=== PATIENT | female | born 1945 | race Caucasian/White ===

== ENCOUNTER 2017-03-22 15:28 | Observation (INO) | payer MEDICARE ==
[~2017-03-22] VITALS: Ht 157.5 cm; Wt 57.6 kg
[~2017-03-22 15:28] MED LIST: ATORVASTATIN CA20 MG PO; BENADRYL25 M1 PO; FERROUS SULFAT325 MG PO; FOLIC ACID1 MG PO; METHOTREXATE2.5 MG PO; ONDANSETRO4 MG/UDTAB PO; PAXIL20 MG PO; TRAZODONE HCL150 MG PO; TYLENOL WITH C1 EACH PO; VALIUM5 MG PO
[2017-03-22 17:24] LABS: BASOPHILS # (AUTO) 0.1 (0.0-0.1); BASOPHILS % 1.2 % (0.0-1.0); EOSINOPHILS % 0.6 % (0.0-6.0); HEMATOCRIT 26.7 % (34.2-44.1); LYMPHOCYTES # (AUTO) 0.9 (1.0-3.2); LYMPHOCYTES % 13.1 % (18.0-39.1); MEAN CORPUSCULAR HEMOGLOBIN 16.7 pg (28-32); MEAN CORPUSCULAR HGB CONC 26.2 g/dL (31-35); MEAN CORPUSCULAR VOLUME 63.7 fL (81-99); MONOCYTES # (AUTO) 0.6 (0.2-0.8); MONOCYTES % 9.5 % (4.4-11.3); NEUTROPHILS # (AUTO) 5.1 (2.1-6.9); NEUTROPHILS % 75.5 % (38.7-80.0); PLATELET COUNT 235 x10e3/uL (140-360); RED BLOOD COUNT 4.19 x10e6/uL (3.6-5.1); RED CELL DISTRIBUTION WIDTH 22.3 % (11.7-14.4)
[2017-03-22 17:26] LABS: BILIRUBIN,URINE NEGATIVE (NEGATIVE); CLARITY,URINE CLEAR (CLEAR); COLOR,URINE YELLOW (YELLOW); KETONES,URINE NEGATIVE (NEGATIVE); LEUKOCYTE ESTERASE ,URINE NEGATIVE (NEGATIVE); NITRITE,URINE NEGATIVE (NEGATIVE); PROTEIN,URINE DIPSTICK NEGATIVE (NEGATIVE); URINE UROBILINOGEN 0.2 mg/dL (0.2 - 1)
[2017-03-22 17:36] LABS: EPITHELIAL CELLS,URINE FEW /LPF; RBC,URINE 0-5 /HPF (0-5); WBC,URINE (MAN) 0-5 /HPF (0-5)
[2017-03-22 17:41] LABS: INR 1.33; PROTHROMBIN TIME 17.2 seconds (11.9-14.5)
[2017-03-22 17:42] LABS: PARTIAL THROMBOPLASTIN TIME 29.9 seconds (23.8-35.5)
--- NOTE | 2017-03-22 17:50 | Diagnostic Imaging Report ---
EXAMINATION: Head CT HISTORY: AMS, status post fall. COMPARISON: None. TECHNIQUE: Multidetector axial images were obtained without contrast from the foramen magnum to the vertex . The images were reconstructed using brain and bone algorithms. Thin section brain images were reformatted into coronal and sagittal planes. Motion/streaking artifact limits the evaluation of the skull base and posterior cranial fossa. FINDINGS: Parenchyma: 1. Moderate confluent periventricular white matter hypodensities, most likely nonspecific chronic microvascular changes. 2. No mass or hemorrhage. No CT evidence of acute territorial vascular insult. Extra-axial spaces:No abnormal density. No extra-axial fluid collections Brain volume: Normal for age. Ventricles: Mild ventriculomegaly, that is slightly out of proportion to the size of the cortical sulci, thinning and upward displacement of the corpus callosum, with relative partial effacement of the vertex region sulci. Some degree of normal pressure hydrocephalus cannot be excluded in the appropriate clinical setting. Arteries: No density suggestive of thrombus. Dural sinuses: No abnormal density. Extra-axial spaces: No abnormal density. Foramen magnum: No mass, Chiari malformation, or basilar invagination. Sella: No obvious mass. Paranasal/mastoid sinuses: Imaged portions unremarkable. Skull/Scalp: No lytic or blastic lesions. No fractures. IMPRESSION: 1. No acute intracranial hemorrhage. 2. Moderate chronic microvascular ischemic changes. 3. Ventriculomegaly as described. Signed by: Dr. Jayne Sorto M.D. on 03/22/2017 5:46 PM
[2017-03-22 17:54] LABS: ALBUMIN 3.3 g/dL (3.5-5.0); ALBUMIN/GLOBULIN RATIO 0.9 (0.8-2.0); ANION GAP 12.2 mmol/L (8-16); CALCIUM 8.8 mg/dL (8.4-10.2); CREATININE, SERUM 1.17 mg/dL (0.57-1.11); POTASSIUM 4.2 mmol/L (3.5-5.1)
[2017-03-22 18:06] LABS: CREATINE KINASE MB 1.5 ng/mL (0.00-5.00); TROPONIN I 0.235 ng/mL (0-0.300)
[2017-03-22] MEDS ORDERED: SODIUM CHLORIDE 0.9% 250ML 250 ML IV ONE (22:45)
[2017-03-22] MEDS ORDERED: SODIUM CHLORIDE FLUSH 10 ML SYR INJ PRN (22:45)
[2017-03-22] MEDS ORDERED: ONDANSETRON HCL INJ 2 MG/ML VIAL IV PRN (22:45)
[2017-03-22] MEDS ORDERED: FUROSEMIDE INJ 10 MG/ML 2 ML VIAL IV PRN (22:45)
[2017-03-22 23:34] LABS: FERRITIN 33.6 ng/mL (4.63-204.00)
[2017-03-23] VITALS (9 sets, daily range): BP systolic 103–129; BP diastolic 50–60
[2017-03-23] MEDS ORDERED: SODIUM CHLORIDE 0.9% 250ML 250 ML ONE (04:48)
[2017-03-23] MEDS: PANTOPRAZOLE 40 MG 10ML VIAL IV SCH ×2 (09:12→10:25)
[2017-03-23 10:44] LABS: BASOPHILS # (AUTO) 0.1 (0.0-0.1); BASOPHILS % 1.1 % (0.0-1.0); EOSINOPHILS # (AUTO) 0.2 (0.0-0.4); EOSINOPHILS % 3.7 % (0.0-6.0); HEMATOCRIT 31.1 % (34.2-44.1); HEMOGLOBIN 8.6 g/dL (12.0-16.0); LYMPHOCYTES # (AUTO) 0.8 (1.0-3.2); LYMPHOCYTES % 12.4 % (18.0-39.1); MEAN CORPUSCULAR HEMOGLOBIN 18.5 pg (28-32); MEAN CORPUSCULAR HGB CONC 27.7 g/dL (31-35); MEAN CORPUSCULAR VOLUME 66.9 fL (81-99); MONOCYTES # (AUTO) 0.7 (0.2-0.8); MONOCYTES % 10.2 % (4.4-11.3); NEUTROPHILS # (AUTO) 4.7 (2.1-6.9); NEUTROPHILS % 72.3 % (38.7-80.0); PLATELET COUNT 231 x10e3/uL (140-360); RED BLOOD COUNT 4.65 x10e6/uL (3.6-5.1); RED CELL DISTRIBUTION WIDTH 24.5 % (11.7-14.4)
[2017-03-23 11:03] LABS: ALBUMIN 2.9 g/dL (3.5-5.0); ALBUMIN/GLOBULIN RATIO 0.8 (0.8-2.0); ANION GAP 15.6 mmol/L (8-16); CALCIUM 8.2 mg/dL (8.4-10.2); CREATININE, SERUM 0.94 mg/dL (0.57-1.11); POTASSIUM 3.6 mmol/L (3.5-5.1)
[2017-03-23 11:18] LABS: ANISOCYTOSIS SLIGHT; EOSINOPHILS % (MANUAL) 2 % (0-7); LYMPHOCYTES % (MANUAL) 6 % (19-48); MONOCYTES % (MANUAL) 12 % (3.4-9.0); NEUTROPHILS % (MANUAL) 80 % (40-74)
[2017-03-23 11:19] LABS: HYPOCHROMASIA SLIGHT; MICROCYTOSIS SLIGHT; PLATELET ESTIMATE ADEQUATE; PLATELET MORPHOLOGY COMMENT NORMAL; POIKILOCYTOSIS SLIGHT
[2017-03-23] MEDS ORDERED: IPRATROPIUM BROMIDE 0.06% 42 MCG NASPR NS PRN (11:30)
[2017-03-23] MEDS ORDERED: DIAZEPAM 5 MG TAB PO PRN (11:30)
[2017-03-23] MEDS: ACETAMINOPHEN 325 MG TAB PO PRN ×3 (13:39→21:04)
[2017-03-23] MEDS: SODIUM FERRIC GLUCONATE COMPLX 125 MG in SODIUM CHLORIDE 0.9% 100 ML 100 ML IV SCH (14:52)
--- NOTE | 2017-03-23 15:35 | History and Physical ---
PRIMARY CARE PHYSICIAN: Dr. Allan. CHIEF COMPLAINT: Confusion and decreased energy. HISTORY OF PRESENT ILLNESS: This is a 71-year-old woman with a history of anemia, rheumatoid arthritis, who has a history of alcoholism, now developing increased fatigue and confusion, and, therefore, brought to the hospital by her son. They admitted that the patient has been more confused over the past month. The patient also admits to some swelling of the abdomen in the past and leg edema in the past. Here she is found to have severe anemia. She is admitted for further evaluation and management. Denies any chest pain. Denies any abdominal pain. Denies any melena or blood loss. PAST MEDICAL HISTORY: Anemia. Generalized anxiety disorder, TIA, rheumatoid arthritis. PAST SURGICAL HISTORY: as per electronic medical records. FAMILY HISTORY/SOCIAL HISTORY: The patient is single. She has one child. Quit alcohol about 3 months ago. She drank about 4 beers a day. She denies any cigarettes or illicits. MEDICATIONS: Per electronic medical records. REVIEW OF SYSTEMS: Denies any dizziness or chest pain. PHYSICAL EXAMINATION VITAL SIGNS: Reviewed. GENERAL APPEARANCE: A tired-appearing woman resting in the bed. HEENT: Anicteric. Pupils responsive to light. No oral lesions. CARDIOVASCULAR: Normal S1 and S2. LUNGS: Moderate breath sounds, ABDOMEN: Soft and nontender. Nondistended. EXTREMITIES: There is no edema or calf tenderness. NEUROLOGIC: Alert and oriented x3. Moving all extremities. SKIN: Dry. PSYCHIATRIC: Flat affect. LABS: Reviewed. MEDICATIONS: Reviewed. ASSESSMENT AND PLAN: A 71-year-old woman. 1. Severe anemia, which is microcytic. She has iron deficiency. She has received 1 unit of packed red blood cells. Will use IV . 2. Hyperbilirubinemia. The patient has been on methotrexate and drank excess alcohol in the past. Will stop methotrexate and obtain hepatitis panel. Will also obtain an ammonia level. Her ammonia level was 35. 3. Acute kidney injury. She has shown some improvement after receiving blood. Will follow. 4. Generalized anxiety disorder. Restart home medications. 5. Rheumatoid arthritis. Hold methotrexate. 6. Prophylaxis. Use IV proton pump inhibitor and SCDs. DISPOSITION: Reassess blood counts tomorrow. If stable, plan to discharge home. She can follow up as an outpatient with her primary care physician for the results of the hepatitis panel testing. Job#: [id number] PERLITA
[2017-03-23] MEDS ORDERED: TRAZODONE HCL 50 MG TAB PO SCH (21:00)
[2017-03-23] MEDS ORDERED: ATORVASTATIN 20 MG TAB PO SCH (21:00)
[2017-03-24 00:21] VITALS: BP 121/68
[2017-03-24 04:00] VITALS: BP 134/62
[2017-03-24] MEDS: ACETAMINOPHEN 325 MG TAB PO PRN (06:31)
[2017-03-24 08:25] VITALS: BP 132/61
[2017-03-24] MEDS ORDERED: FERROUS SULFAT325 MG PO (08:50)
[2017-03-24] MEDS ORDERED: PANTOPRAZOLE SO40 MG PO (08:50)
[2017-03-24] MEDS ORDERED: FOLIC ACID 1 MG TAB PO SCH (09:00)
[2017-03-24] MEDS ORDERED: FERROUS SULFATE 325 MG TAB PO SCH (09:00)
[2017-03-24 09:19] LABS: HEMATOCRIT 32.7 % (34.2-44.1); HEMOGLOBIN 9.3 g/dL (12.0-16.0)
[2017-03-24] MEDS: PANTOPRAZOLE 40 MG 10ML VIAL IV SCH (09:19)
[2017-03-24 10:55] VITALS: BP 132/61
[2017-03-24 12:42] VITALS: BP 124/59
[2017-03-24] MEDS: SODIUM FERRIC GLUCONATE COMPLX 125 MG in SODIUM CHLORIDE 0.9% 100 ML 100 ML IV SCH (13:00)
--- NOTE | 2017-03-25 02:50 | Discharge Summary ---
PRINCIPAL DIAGNOSES 1. Severe microcytic anemia with iron deficiency, status post blood transfusion of 1 unit of packed red blood cell transfusion and intravenous Ferrlecit. 2. Hyperbilirubinemia, on methotrexate. 3. Acute kidney injury. 4. Generalized anxiety disorder. SECONDARY DIAGNOSIS: Rheumatoid arthritis. CHIEF COMPLAINT: Fatigue. HISTORY OF PRESENT ILLNESS: This is a 71-year-old woman who developed fatigue. Refer to the H and P for further details. HOSPITAL COURSE: Patient was found to have severe anemia, microcytic with iron deficiency requiring 2 units of packed red blood cell transfusion. She had IV Ferrlecit treated, and started on Protonix. We will recheck her H and H this morning. If it is stable, we will send her home and plan to have an outpatient endoscopy with Dr. Fournier. I have discontinued her methotrexate due to hyperbilirubinemia. I have also started her on Protonix for anemia. She had acute kidney injury, which has improved and resolved with blood transfusion. She had generalized anxiety disorder, and treated with home medications. She is doing better and currently appropriate for discharge. Patient's H and H is stable. DISCHARGE MEDICATIONS: Per electronic medical record, including ferrous sulfate 35 mg b.i.d. and Protonix 40 mg daily. FOLLOWUP 1. Primary care doctor in 1 week. 2. Follow up with Dr. Fournier in 1 week for outpatient endoscopy. KEIRY NEWBERRY MD Job#: [id number] NE
== END 2017-03-24 14:35 | disposition home or self-care (01) ==
LOC: ER 15:28 → ERHOLD 22:39 → IMCU 03-23 04:17
PROVIDERS: ADMIT Internal Medicine; ATTEND Internal Medicine
DX: D50.9 Iron deficiency anemia, unspecified (principal); N17.9 Acute kidney failure, unspecified; F41.1 Generalized anxiety disorder; M06.9 Rheumatoid arthritis, unspecified; E80.7 Disorder of bilirubin metabolism, unspecified; K21.9 Gastro-esophageal reflux disease without esophagitis; G62.9 Polyneuropathy, unspecified; F10.21 Alcohol dependence, in remission; Z86.73 Personal history of transient ischemic attack (TIA), and cerebral infarction without residual deficits; Z79.899 Other long term (current) drug therapy
CPT/HCPCS: 36415 ×3; 36430; 70450; 80053 ×2; 81001; 82140; 82550; 82553; 82728; 82948; 83540; 84443; 84466; 84484; 85014; 85018; 85025 ×2; 85610; 85730; 86850; 86900; 86920; 87086; 93005; 97139; 99284; G0378 ×3; J1940; J2405; J2916; J7050; P9016

== ENCOUNTER 2017-08-24 00:28 | Emergency (ER) | payer MEDICARE ==
[~2017-08-24] VITALS: Ht 157.5 cm; Wt 57.6 kg
[~2017-08-24 00:28] MED LIST changes: +PANTOPRAZOLE SO40 MG PO
--- OUTSIDE RECORDS SUMMARY | 2017-08-24 00:31 | XMS REPORT ---
Author Author [facility] Address Unknown Phone Unavailable Care Team Providers Care Post Office Markup Clerk Name Role Phone ZOHAIB NOVAK Unavailable Unavailable BIBI SHEFFIELD Unavailable Unavailable Problems This patient has no known problems. Allergies, Adverse Reactions, Alerts This patient has no known allergies or adverse reactions. Medications This patient has no known medications. Results Test Description Test Time Test Comments Text Results Atomic Results Result Comments CT BRAIN WO [place] [address] Patient Name: CARTER JAMES MR #: [id number] : 1945 Age/Sex: 71/F Req #: [id number] Adm Physician: Ordered by: ZOHAIB NOVAK MD Report #: [id number] Location: ER Room/Bed: Procedure: [id number] CT/CT BRAIN WO Exam Date: Exam Time: REPORT STATUS: Signed EXAMINATION: Head CT HISTORY: AMS, status post fall. COMPARISON: None. TECHNIQUE: Multidetector axial images were obtained without contrast from the foramen magnum to the vertex . The images were reconstructed using brain and bone algorithms. Thin section brain images were reformatted into coronal and sagittal planes. Motion/streaking artifact limits the evaluation of the skull base and posterior cranial fossa. FINDINGS: Parenchyma: 1. Moderate confluent periventricular white matter hypodensities, most likely nonspecific chronic microvascular changes. 2. No mass or hemorrhage. No CT evidence of acute territorial vascular insult. Extra-axial spaces:No abnormal density. No extra-axial fluid collections Brain volume: Normal for age. Ventricles: Mild ventriculomegaly, that is slightly out of proportion to the size of the cortical sulci, thinning and upward displacement of the corpus callosum, with relative partial effacement of the vertex region sulci. Some degree of normal pressure hydrocephalus cannot be excluded in the appropriate clinical setting. Arteries: No density suggestive of thrombus. Dural sinuses: No abnormal density. Extra-axial spaces: No abnormal density. Foramen magnum: No mass, Chiari malformation, or basilar invagination. Sella: No obvious mass. Paranasal/mastoid sinuses: Imaged portions unremarkable. Skull/Scalp: No lytic or blastic lesions. No fractures. IMPRESSION: 1. No acute intracranial hemorrhage. 2. Moderate chronic microvascular ischemic changes. 3. Ventriculomegaly as described. Signed by: Dr. Lyndsey Sorto M.D. on 03/22/2017 5:46 PM Dictated By: LYNDSEY SORTO MD 45 COPY TO: ZOHAIB NOVAK MD HIPS BILAT 5 VWS (+/- PELVIS) [place] [address] Patient Name: CARTER JAMES MR #: [id number] : 1945 Age/Sex: 71/F Req #: [id number] Adm Physician: Ordered by: BIBI SHEFFIELD MD Report #: [id number] Location: ER Room/Bed: Procedure: [id number] DX/HIPS BILAT 5 VWS (+/- PELVIS) Exam Date: Exam Time: REPORT STATUS: Signed Bilateral hips - 2 views. Pelvis, AP. HISTORY: Pain. COMPARISON: None available. FINDINGS: Bones: No acute displaced fracture. No expansile lytic or sclerotic lesion. Joints: The joint spaces are well-maintained. No dislocation. Soft tissues: The soft tissues appear unremarkable. Atherosclerotic calcifications. IMPRESSION: No acute radiographic abnormality. Signed by: Dr. Rohith Delgado M.D. on 12/16/2016 4:03 PM Dictated By: ROHITH DELGADO MD 02 COPY TO: BIBI SHEFFIELD MD SP LUMBAR, COMPLETE MIN 4VW [place] [address] Patient Name: CARTER JAMES MR #: [id number] : 1945 Age/Sex: 71/F Req #: [id number] Adm Physician: Ordered by: BIBI SHEFFIELD MD Report #: [id number] Location: ER Room/Bed: Procedure: [id number] DX/SP LUMBAR, COMPLETE MIN 4VW Exam Date: 12/16/16 Exam Time: 1530 REPORT STATUS: Signed Lumbar spine , complete. History: Pain. Comparison: None. Discussion: There are 5 lumbar type vertebral bodies. No displaced fracture or dislocation. Degenerative changes are evidenced by anterior osteophytosis and disc space narrowing of L3/L4. The alignment of the lumbar spine is normal. The vertebral bodies and intervertebral disk spaces are within normal limits. There is no evidence of spondylolisthesis or spondylolysis. No evidence of lytic or sclerotic lesion. The paravertebral soft tissues are unremarkable. IMPRESSION: No acute radiographic abnormality. Degenerative changes. Signed by: Dr. Rohith Delgado M.D. on 12/16 4:06 PM Dictated By: ROHITH DELGADO MD 05 Transcribed By: KERVIN on 12/16/161605 COPY TO: BIBI SHEFFIELD MD
[2017-08-24 00:45] VITALS: BP 144/69
== END 2017-08-24 02:12 | disposition home or self-care (01) ==
LOC: ER 00:28
DX: M79.605 Pain in left leg (principal); M79.604 Pain in right leg; R60.0 Localized edema; I10 Essential (primary) hypertension; I50.9 Heart failure, unspecified; E78.5 Hyperlipidemia, unspecified; K21.9 Gastro-esophageal reflux disease without esophagitis; F41.9 Anxiety disorder, unspecified; D64.9 Anemia, unspecified
CPT/HCPCS: 99283

== ENCOUNTER 2017-09-13 15:14 | Inpatient (IN) | payer MEDICARE ==
[~2017-09-13] VITALS: Ht 157.5 cm; Wt 58.2 kg
--- NOTE | 2017-09-13 17:37 | Diagnostic Imaging Report ---
PROCEDURE: A single AP view of the chest. COMPARISON: None. INDICATIONS: ANSCARIA, SOB FINDINGS: Lines/tubes: None. Lungs: Limited by body habitus and low lung volumes. Central vascular congestion and mild interstitial edema. Left lower lung field opacification, likely effusion. Pleura: There is no pneumothorax. Heart and mediastinum: The cardiac silhouette is enlarged. Bones: No acute bony abnormality. IMPRESSION: Central vascular congestion, enlarged cardiac silhouette, mild interstitial edema, and bilateral pleural effusions (left greater than right). Dictated by: Alton Hinton M.D. on 09/13/2017 at 17:41 Electronically approved by: Alton Hinton M.D. on 09/13/2017 at 17:41
[2017-09-13 18:27] LABS: BASOPHILS % 0.4 % (0.0-1.0); EOSINOPHILS # (AUTO) 0.1 (0.0-0.4); EOSINOPHILS % 1.3 % (0.0-6.0); HEMATOCRIT 37.2 % (34.2-44.1); HEMOGLOBIN 11.4 g/dL (12.0-16.0); LYMPHOCYTES # (AUTO) 1.1 (1.0-3.2); LYMPHOCYTES % 15.8 % (18.0-39.1); MEAN CORPUSCULAR HEMOGLOBIN 27.9 pg (28-32); MEAN CORPUSCULAR HGB CONC 30.6 g/dL (31-35); MONOCYTES # (AUTO) 0.6 (0.2-0.8); MONOCYTES % 8.5 % (4.4-11.3); NEUTROPHILS # (AUTO) 4.9 (2.1-6.9); NEUTROPHILS % 73.7 % (38.7-80.0); PLATELET COUNT 260 x10e3/uL (140-360); RED BLOOD COUNT 4.09 x10e6/uL (3.6-5.1); RED CELL DISTRIBUTION WIDTH 18.6 % (11.7-14.4)
[2017-09-13 18:37] LABS: INR 1.58; PROTHROMBIN TIME 17.7 seconds (11.9-14.5)
[2017-09-13 18:38] LABS: PARTIAL THROMBOPLASTIN TIME 32.1 seconds (23.8-35.5)
[2017-09-13 18:47] LABS: ALANINE AMINOTRANSFERASE 24 IU/L (0-55); ALBUMIN 2.1 g/dL (3.5-5.0); ALBUMIN/GLOBULIN RATIO 0.6 (0.8-2.0); ALKALINE PHOSPHATASE 177 IU/L (40-150); ANION GAP 11.9 mmol/L (8-16); BLOOD UREA NITROGEN 10 mg/dL (7-26); BUN/CREATININE RATIO 13 (6-25); CALCIUM 8.6 mg/dL (8.4-10.2); CARBON DIOXIDE 34 mmol/L (22-29); CHLORIDE 99 mmol/L (98-107); CREATININE, SERUM 0.76 mg/dL (0.57-1.11); EST GLOMERULAR FILTRATION RATE > 60 ML/MIN (60-); GLUCOSE 99 mg/dL (74-118); SODIUM 142 mmol/L (136-145)
[2017-09-13 18:50] LABS: POTASSIUM 2.9 mmol/L (3.5-5.1)
[2017-09-13] MEDS ORDERED: POTASSIUM CHLORIDE 20 MEQ TAB CR PO STA (19:03)
[2017-09-13] MEDS ORDERED: ALBUTEROL/IPRATROPIUM 3 ML NEB NEB ONE (19:15)
[2017-09-13] MEDS ORDERED: SODIUM CHLORIDE FLUSH 10 ML SYR INJ PRN (19:15)
[2017-09-13] MEDS: TRAZODONE HCL 50 MG TAB PO SCH (22:00)
[2017-09-13] MEDS ORDERED: DIPHENHYDRAMINE HCL 25 MG CAP PO PRN (22:00)
[2017-09-13 22:07] VITALS: BP 140/78
[2017-09-13 22:08] VITALS: BP 140/78
[2017-09-13 22:21] VITALS: BP 140/78
[2017-09-14] VITALS (9 sets, daily range): BP systolic 114–168; BP diastolic 57–90
[2017-09-14] MEDS: ALBUTEROL/IPRATROPIUM 3 ML NEB NEB PRN ×3 (01:00→13:35)
[2017-09-14 02:54] LABS: CREATINE KINASE MB 1.9 ng/mL (0-5.0)
[2017-09-14] MEDS ORDERED: POTASSIUM CHLORIDE 20 MEQ TAB CR PO SCH (09:00)
[2017-09-14] MEDS ORDERED: LISINOPRIL 2.5 MG TAB PO SCH (09:00)
[2017-09-14] MEDS: FUROSEMIDE INJ 10 MG/ML 4 ML VIAL IV SCH ×2 (09:26→16:37)
[2017-09-14] MEDS: FOLIC ACID 1 MG TAB PO SCH (09:26)
[2017-09-14] MEDS: SPIRONOLACTONE 25 MG TAB PO SCH ×2 (09:26→16:37)
[2017-09-14] MEDS: FERROUS SULFATE 325 MG TAB PO SCH ×2 (09:26→21:21)
[2017-09-14] MEDS: ATORVASTATIN 20 MG TAB PO SCH (09:27)
[2017-09-14] MEDS: PAROXETINE HCL 20 MG TAB PO SCH (09:28)
[2017-09-14] MEDS: PANTOPRAZOLE SOD 40 MG TABEC PO SCH (09:28)
--- NOTE | 2017-09-14 10:44 | History and Physical ---
PRIMARY CARE PHYSICIAN: Dr. Allan CHIEF COMPLAINT: Fluid overload. HISTORY OF PRESENT ILLNESS: This is a 71-year-old woman who has been having increased leg swelling and abdominal edema for the past month. She has not seen her primary care doctor. She came to the hospital for further evaluation and management. Denies any chest pain. Does have some shortness of breath when lying flat. PAST MEDICAL HISTORY: Anemia, generalized anxiety disorder, TIA, rheumatoid arthritis, alcohol abuse, severe microcytic anemia with iron deficiency, status post blood transfusion times 1 on IV Ferrlecit, hyperbilirubinemia on methotrexate, acute kidney injury. PAST SURGICAL HISTORY: . ALLERGIES: PER ELECTRONIC MEDICAL RECORD. FAMILY HISTORY/SOCIAL HISTORY: The patient is single. She has 1 child. Previously drank about 4 beers a day. Denies any cigarettes or illicits. MEDICATIONS: Per electronic medical record. REVIEW OF SYSTEMS: Denies any dizziness, fever, chills, sweats, nausea, vomiting, diarrhea, leg pain. VITAL SIGNS: Have been reviewed. PHYSICAL EXAMINATION GENERAL: A tired-appearing woman resting in bed. HEENT: Atraumatic. CARDIOVASCULAR: Normal S1 and S2. LUNGS: She has moderate breath sounds reduced at the bases. ABDOMEN: Firm throughout the abdomen secondary to edema. EXTREMITIES: She has edema throughout, 2 to 3+, firm legs throughout. SKIN: Dry. She has mild macular erythematous rash on the face. PSYCHIATRIC: Flat affect. NEUROLOGIC: Awake, alert, appropriate, moving all extremities. LABS: Reviewed. MEDICATIONS: Reviewed. ASSESSMENT: This is a 71-year-old woman. 1. Acute exacerbation of congestive heart failure. 2. Peripheral edema. 3. Bilateral pleural effusions. 4. Hypokalemia. 5. Hyperbilirubinemia. 6. Hyperlipidemia. 7. Iron deficiency anemia. 8. Gastroesophageal reflux disease. 9. Overweight state. 10. Alcohol abuse. 11. Rheumatoid arthritis. PLAN 1. Obtain 2-D echocardiogram. 2. Diurese the patient. 3. Place Ying and monitor. Obtain strict I's and O's. 4. Follow up potassium level. 5. Obtain hepatitis panel. 6. Lovenox 40 for DVT prophylaxis and PPI for GI prophylaxis. 7. Ferrous sulfate. 8. Continue PONCHO inhibitor. 9. Monitor renal function. 10. Follow up cardiology's recommendations. Job#: [id number] MH
[2017-09-14 11:03] LABS: BASOPHILS % 0.7 % (0.0-1.0); EOSINOPHILS # (AUTO) 0.1 (0.0-0.4); EOSINOPHILS % 2.1 % (0.0-6.0); HEMOGLOBIN 11.4 g/dL (12.0-16.0); LYMPHOCYTES # (AUTO) 0.9 (1.0-3.2); MEAN CORPUSCULAR HEMOGLOBIN 27.9 pg (28-32); MEAN CORPUSCULAR HGB CONC 31.7 g/dL (31-35); MONOCYTES # (AUTO) 0.5 (0.2-0.8); NEUTROPHILS # (AUTO) 4.1 (2.1-6.9); NEUTROPHILS % 72.8 % (38.7-80.0); PLATELET COUNT 229 x10e3/uL (140-360); RED BLOOD COUNT 4.09 x10e6/uL (3.6-5.1); RED CELL DISTRIBUTION WIDTH 18.3 % (11.7-14.4)
[2017-09-14 11:17] LABS: ANION GAP 11.9 mmol/L (8-16); BLOOD UREA NITROGEN 9 mg/dL (7-26); BUN/CREATININE RATIO 12 (6-25); CALCIUM 8.7 mg/dL (8.4-10.2); CARBON DIOXIDE 35 mmol/L (22-29); CHLORIDE 102 mmol/L (98-107); CREATININE, SERUM 0.75 mg/dL (0.57-1.11); EST GLOMERULAR FILTRATION RATE > 60 ML/MIN (60-); GLUCOSE 100 mg/dL (74-118); SODIUM 146 mmol/L (136-145)
[2017-09-14 11:19] LABS: POTASSIUM 2.9 mmol/L (3.5-5.1)
[2017-09-14 11:33] LABS: CHOL/HDL RATIO 6.9 (3.0-3.6)
[2017-09-14 11:48] LABS: CREATINE KINASE MB 1.6 ng/mL (0-5.0)
[2017-09-14 11:56] LABS: THYROID STIMULATING HORMONE 3.124 uIU/mL (0.350-4.940)
[2017-09-14] MEDS ORDERED: BISACODYL 10 MG SUPP PR NR (12:45)
[2017-09-14] MEDS ORDERED: POTASSIUM CHLORIDE 10 MEQ TABCR PO NR (12:45)
--- NOTE | 2017-09-14 13:08 | Consultation ---
DATE OF CONSULTATION: September 14, 2017 CARDIOLOGY CONSULTATION HISTORY OF PRESENT ILLNESS: Ms. Anderson is a 71-year-old lady with a past medical history as listed below. She reportedly has been having worsening swelling of her legs and arms for the last month, which got progressively worse, so she decided to come to the hospital. Apparently about a month back she had endoscopy. Since then, she has broken out in a rash and has lesions on her face. She does get a little short of breath at times. Denies any chest pain. She was noted to be in CHF. Hence, we have been consulted. REVIEW OF SYMPTOMS CONSTITUTIONAL: She has some fatigue and weakness. HEENT: No headache, blurring of vision, seizure or syncope. CARDIOVASCULAR: No chest pain. Had some dyspnea. Has leg edema and upper extremity edema. No orthopnea or PND. RESPIRATORY: No cough, fever, or expectoration. GI: No abdominal pain, vomiting or diarrhea. : No dysuria, frequency, incontinence. ALLERGIES: NO KNOWN DRUG ALLERGIES. MEDICATIONS: See list. PAST MEDICAL HISTORY 1. History of rheumatoid arthritis. 2. History of anemia. 3. History of TIA. 4. History of anxiety. 5. History of hyperbilirubinemia. SOCIAL HISTORY: Does not smoke or drink. FAMILY HISTORY: Noncontributory. PHYSICAL EXAMINATION GENERAL: Moderately built and nourished lady, awake, alert, not in any obvious distress. VITALS: Heart rate 84, blood pressure 139/60, respiratory rate 18, temperature 96.2. HEENT: Atraumatic. Erythematous maculopapular rash on her cheeks and forehead. NECK: No JVD, bruit, thyromegaly, or lymphadenopathy. CARDIOVASCULAR: The 1st and 2nd heart sounds are heard. No murmurs, rubs or gallops appreciated. CHEST: Decreased air entry at the bases. No adventitious sounds appreciated. ABDOMEN: Soft, nontender. EXTREMITIES: There is 2 to 3+ edema of the lower and upper extremities. LABS: Sodium 146, potassium 2.9, chloride 102, bicarb 35, BUN 9, creatinine 0.7, glucose 100. Hemoglobin 11.4, hematocrit 36, platelets 229, white count 5.6. BNP is 3090. Troponin 0.18, 0.19, 0.22. EKG shows sinus rhythm at 75 beats per minute, right axis, right ventricular hypertrophy, Q waves in V1 to V3, 1 and aVL. Low voltage. IMPRESSION 1. Anasarca. 2. Congestive heart failure. 3. Anemia. 4. Hypokalemia. 5. Hyperbilirubinemia. 6. 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 PLAN 1. IV diuresis. 2. Replace potassium. 3. Continue with PONCHO inhibitor. 4. Start on low-dose beta donovan. 5. Get echocardiogram to assess LV function and valvular function. 6. Venous Doppler to rule out DVT. 7. Further cardiac workup depending on clinical course. 8. I discussed my impression and plan of management with the patient, and she understands. As always, I appreciate and thank you very much for your referrals. Job#: [id number]
[2017-09-14] MEDS: ACETAMINOPHEN/CODEINE 300MG - 30MG TAB PO PRN (13:16)
[2017-09-14] MEDS: CHLORASEPTIC SPRAY 177 ML BTL MM PRN (15:36)
[2017-09-14 16:22] LABS: CLARITY,URINE SL CLOUDY (CLEAR); COLOR,URINE YELLOW (YELLOW)
[2017-09-14 16:23] LABS: BILIRUBIN,URINE NEGATIVE (NEGATIVE); KETONES,URINE NEGATIVE (NEGATIVE); LEUKOCYTE ESTERASE ,URINE TRACE (NEGATIVE); NITRITE,URINE NEGATIVE (NEGATIVE); PROTEIN,URINE DIPSTICK TRACE (NEGATIVE); URINE UROBILINOGEN 1 mg/dL (0.2 - 1)
[2017-09-14 16:34] LABS: BACTERIA,URINE MANY /HPF; EPITHELIAL CELLS,URINE RARE /LPF
[2017-09-14] MEDS: DOCUSATE SODIUM 100 MG CAP PO SCH (16:37)
[2017-09-14] MEDS: SENNOSIDES 8.6 MG TAB PO SCH (16:37)
[2017-09-14] MEDS: ENOXAPARIN SOD INJ 40 MG/0.4 ML SYR SC SCH (16:37)
[2017-09-14] MEDS ORDERED: METOPROLOL TARTRATE 25 MG TAB PO SCH (17:00)
[2017-09-14] MEDS: POTASSIUM CHLORIDE 10 MEQ TABCR PO SCH (17:35)
[2017-09-14] MEDS: TRAZODONE HCL 50 MG TAB PO SCH (21:21)
[2017-09-14] MEDS: METOPROLOL TARTRATE 25 MG TAB PO SCH (21:21)
[2017-09-14] MEDS: LISINOPRIL 2.5 MG TAB PO SCH (21:22)
[2017-09-15] VITALS (7 sets, daily range): BP systolic 110–137; BP diastolic 59–79
[2017-09-15] MEDS: SPIRONOLACTONE 25 MG TAB PO SCH ×2 (08:00→16:55)
[2017-09-15] MEDS: POTASSIUM CHLORIDE 10 MEQ TABCR PO SCH ×2 (08:00→16:56)
[2017-09-15] MEDS: FERROUS SULFATE 325 MG TAB PO SCH ×2 (08:00→20:57)
[2017-09-15] MEDS: ATORVASTATIN 20 MG TAB PO SCH (08:00)
[2017-09-15] MEDS: FUROSEMIDE INJ 10 MG/ML 4 ML VIAL IV SCH ×2 (08:00→16:55)
[2017-09-15] MEDS: DOCUSATE SODIUM 100 MG CAP PO SCH ×2 (08:00→16:04)
[2017-09-15] MEDS: FOLIC ACID 1 MG TAB PO SCH (08:00)
[2017-09-15] MEDS: METOPROLOL TARTRATE 25 MG TAB PO SCH ×2 (08:01→21:00)
[2017-09-15] MEDS: PANTOPRAZOLE SOD 40 MG TABEC PO SCH (08:01)
[2017-09-15] MEDS: LISINOPRIL 2.5 MG TAB PO SCH (08:01)
[2017-09-15] MEDS: PAROXETINE HCL 20 MG TAB PO SCH (08:01)
[2017-09-15] MEDS: SENNOSIDES 8.6 MG TAB PO SCH ×2 (08:02→16:04)
[2017-09-15 08:35] LABS: BASOPHILS % 0.8 % (0.0-1.0); EOSINOPHILS # (AUTO) 0.2 (0.0-0.4); EOSINOPHILS % 4.4 % (0.0-6.0); HEMATOCRIT 33.4 % (34.2-44.1); HEMOGLOBIN 10.4 g/dL (12.0-16.0); LYMPHOCYTES % 19.8 % (18.0-39.1); MEAN CORPUSCULAR HEMOGLOBIN 27.5 pg (28-32); MEAN CORPUSCULAR HGB CONC 31.1 g/dL (31-35); MEAN CORPUSCULAR VOLUME 88.4 fL (81-99); MONOCYTES # (AUTO) 0.6 (0.2-0.8); MONOCYTES % 12.3 % (4.4-11.3); NEUTROPHILS # (AUTO) 3.1 (2.1-6.9); NEUTROPHILS % 62.3 % (38.7-80.0); PLATELET COUNT 206 x10e3/uL (140-360); RED BLOOD COUNT 3.78 x10e6/uL (3.6-5.1); RED CELL DISTRIBUTION WIDTH 18.1 % (11.7-14.4)
[2017-09-15 08:44] LABS: ANION GAP 9.6 mmol/L (8-16); BLOOD UREA NITROGEN 8 mg/dL (7-26); BUN/CREATININE RATIO 11 (6-25); CALCIUM 8.5 mg/dL (8.4-10.2); CARBON DIOXIDE 37 mmol/L (22-29); CHLORIDE 103 mmol/L (98-107); CREATININE, SERUM 0.74 mg/dL (0.57-1.11); EST GLOMERULAR FILTRATION RATE > 60 ML/MIN (60-); GLUCOSE 99 mg/dL (74-118); SODIUM 146 mmol/L (136-145)
[2017-09-15 08:53] LABS: POTASSIUM 3.6 mmol/L (3.5-5.1)
[2017-09-15] MEDS: LIDOCAINE VISC 2% SOLN 15 ML UDC PO PRN (13:10)
--- NOTE | 2017-09-15 13:31 | Progress Note ---
DATE: September 15, 2017 TIME OF SERVICE: 12:30 p.m. INTERNAL MEDICINE PROGRESS NOTE OVERNIGHT: No acute events. REVIEW OF SYSTEMS: Patient denies any dizziness, fever, chills, sweats, N/V/D, claudication. The patient continues to complain of swelling. VITAL SIGNS: T 97.6, P 80, R 20, BP 137/74, SpO2 98% on room air. PHYSICAL EXAMINATION GENERAL APPEARANCE: A very tired-appearing female resting supine in bed. HEENT: Normocephalic. Oral mucosa is moist with scant whitish lesions noted in buccal area and under tongue. No sinus tenderness. Trachea is midline. No JVD present. CV: S1 and S2 auscultated with regular rate. Heart tones distant. LUNGS: Moderate breath sounds with fair excursion which are reduced at the bases. ABDOMEN: Firm, slightly tender to palpation and distended due to edema. Some orange peel noted to skin. EXTREMITIES: There is 2 to 3+ edema in all extremities. Legs are tender to touch. SKIN: Dry with macular, erythematous rash on the face/scattered lesions of same. PSYCHIATRIC: Flat affect. NEUROLOGIC: A and O times 3, moves all extremities. Gross motor function intact on gross examination. LABS: WBC 4.96, H and H 10.4 and 33.4 respectively. Platelet count this a.m. was 206. Na 146, K 3.6, Cl 103, CO2 37, gap 9.6, BUN 8, creatinine 0.74. MEDICATIONS: Reviewed. ASSESSMENT AND PLAN: This is a 71-year-old woman with: 1. Acute exacerbation of congestive heart failure: A 2-D echo completed with preliminary results reviewed. Tech estimated EF 45% to 50% with severe LVH, moderate AI, moderate TR, mild MR. Continue to diurese the patient. The last 24 hours with noted deficit in the I and O of 4860 mL. Continue strict I's and O's. RN noted foul odor upon Ying placement, so culture sent to the lab. 2. Peripheral edema. 3. Bilateral pleural effusions. 4. Hypokalemia: Monitor and replace. 5. Hyperbilirubinemia: Hepatitis panel pending. 6. Hyperlipidemia: RD dietary approaches in addition to prescribed Lipitor 40 mg p.o. daily. 7. Iron deficiency anemia: Oral supplementation. 8. Gastroesophageal reflux disease: Protonix. 9. Overweight state. 10. Alcohol abuse: Case management consulted for SNF followup for outpatient treatment. 11. Rheumatoid arthritis: P.R.N. pain medication. 12. Prophylaxis: Protonix and Lovenox. 13. Disposition: SNF evaluation is pending. We will continue treatment plan as above and provide additional swish and swallow for oral mucosal lesion. Job#: [id number]
[2017-09-15] MEDS: ENOXAPARIN SOD INJ 40 MG/0.4 ML SYR SC SCH (16:56)
[2017-09-15] MEDS: TRAZODONE HCL 50 MG TAB PO SCH (21:45)
[2017-09-16] VITALS (8 sets, daily range): BP systolic 125–156; BP diastolic 68–94
[2017-09-16] MEDS: ALBUTEROL/IPRATROPIUM 3 ML NEB NEB PRN ×3 (00:22→20:30)
[2017-09-16 06:39] LABS: ANION GAP 11.3 mmol/L (8-16); BLOOD UREA NITROGEN 8 mg/dL (7-26); BUN/CREATININE RATIO 10 (6-25); CALCIUM 9.2 mg/dL (8.4-10.2); CARBON DIOXIDE 38 mmol/L (22-29); CHLORIDE 100 mmol/L (98-107); CREATININE, SERUM 0.77 mg/dL (0.57-1.11); EST GLOMERULAR FILTRATION RATE > 60 ML/MIN (60-); GLUCOSE 87 mg/dL (74-118); POTASSIUM 4.3 mmol/L (3.5-5.1); SODIUM 145 mmol/L (136-145)
[2017-09-16] MEDS: DOCUSATE SODIUM 100 MG CAP PO SCH ×2 (09:00→17:00)
[2017-09-16] MEDS: LIDOCAINE VISC 2% SOLN 15 ML UDC PO PRN ×2 (11:36→20:54)
[2017-09-16] MEDS: FERROUS SULFATE 325 MG TAB PO SCH ×2 (11:39→20:54)
[2017-09-16] MEDS: SPIRONOLACTONE 25 MG TAB PO SCH ×2 (11:39→17:11)
[2017-09-16] MEDS: FUROSEMIDE INJ 10 MG/ML 4 ML VIAL IV SCH ×2 (11:39→17:11)
[2017-09-16] MEDS: POTASSIUM CHLORIDE 10 MEQ TABCR PO SCH ×2 (11:41→17:11)
[2017-09-16] MEDS: FOLIC ACID 1 MG TAB PO SCH (11:41)
[2017-09-16] MEDS: ATORVASTATIN 20 MG TAB PO SCH (11:41)
[2017-09-16] MEDS: METOPROLOL TARTRATE 25 MG TAB PO SCH ×2 (11:41→20:54)
[2017-09-16] MEDS: SENNOSIDES 8.6 MG TAB PO SCH ×2 (11:42→17:11)
[2017-09-16] MEDS: PANTOPRAZOLE SOD 40 MG TABEC PO SCH (11:42)
[2017-09-16] MEDS: LISINOPRIL 2.5 MG TAB PO SCH (11:42)
[2017-09-16] MEDS: PAROXETINE HCL 20 MG TAB PO SCH (11:42)
[2017-09-16] MEDS: ENOXAPARIN SOD INJ 40 MG/0.4 ML SYR SC SCH (17:11)
[2017-09-16] MEDS: BALSAM PERU/CASTOR OIL 60 GM OINT...G. TP SCH (17:11)
--- NOTE | 2017-09-16 18:09 | Progress Note ---
DATE: September 16, 2017 TIME OF SERVICE: 7:30 a.m. SUBJECTIVE: Overnight echocardiogram showed pericardial effusion and valvular disease. REVIEW OF SYSTEMS: Patient denies any dizziness or chest pain. VITAL SIGNS: Reviewed. PHYSICAL EXAMINATION GENERAL APPEARANCE: A tired-appearing woman resting supine in bed. HEENT: Anicteric. CARDIOVASCULAR: Normal S1 and S2. LUNGS: Moderate breath sounds, ABDOMEN: Firm diffusely. EXTREMITIES: There is 2+ leg edema. SKIN: Dry. PSYCHIATRIC: Flat affect. LABS: Reviewed. MEDICATIONS: Reviewed. ASSESSMENT : A 71-year-old woman. 1. Acute exacerbation of systolic congestive heart failure: 2. Peripheral edema. 3. Bilateral pleural effusions. 4. Hypokalemia. 5. Hyperbilirubinemia. 6. Hyperlipidemia. 7. Iron deficiency anemia. 8. Gastroesophageal reflux disease. 9. Rheumatoid arthritis. 10. Alcohol abuse 11. Anasarca. 12. Systolic congestive heart failure, left anterior ejection fraction 45% to 50%. 13. Small to moderate pericardial effusion. 14. Moderate aortic regurgitation. 15. Moderate to severe tricuspid regurgitation. 16. Moderate pulmonary hypertension. 17. Urinary tract infection. PLAN: 1. Continue diuresis. 2. I's and O's., 795/5000. 3. Continue diuresis. 4. Physical therapy. 5. Will need skilled facility for continued IV diuresis, which will take probably a week of IV treatment, and subsequently transitioned to oral therapy due to chronic edema and chronic anasarca. 6. Replace potassium and recheck as appropriate. 7. Follow up urine culture. Job#: [id number]
[2017-09-16] MEDS: TRAZODONE HCL 50 MG TAB PO SCH (20:54)
[2017-09-16] MEDS: ACETAMINOPHEN/CODEINE 300MG - 30MG TAB PO PRN (20:59)
[2017-09-17] VITALS (8 sets, daily range): BP systolic 117–132; BP diastolic 56–79
[2017-09-17] MEDS: LISINOPRIL 2.5 MG TAB PO SCH (08:35)
[2017-09-17] MEDS: POTASSIUM CHLORIDE 10 MEQ TABCR PO SCH ×2 (08:35→17:30)
[2017-09-17] MEDS: METOPROLOL TARTRATE 25 MG TAB PO SCH ×2 (08:35→20:53)
[2017-09-17] MEDS: PANTOPRAZOLE SOD 40 MG TABEC PO SCH (08:35)
[2017-09-17] MEDS: FUROSEMIDE INJ 10 MG/ML 4 ML VIAL IV SCH ×2 (08:35→17:30)
[2017-09-17] MEDS: SPIRONOLACTONE 25 MG TAB PO SCH ×2 (08:35→17:30)
[2017-09-17] MEDS: FERROUS SULFATE 325 MG TAB PO SCH ×2 (08:35→20:53)
[2017-09-17] MEDS: PAROXETINE HCL 20 MG TAB PO SCH (08:35)
[2017-09-17] MEDS: BALSAM PERU/CASTOR OIL 60 GM OINT...G. TP SCH ×2 (08:35→17:30)
[2017-09-17] MEDS: FOLIC ACID 1 MG TAB PO SCH (08:35)
[2017-09-17] MEDS: DOCUSATE SODIUM 100 MG CAP PO SCH ×2 (08:47→18:00)
[2017-09-17] MEDS: SENNOSIDES 8.6 MG TAB PO SCH ×2 (08:50→18:00)
[2017-09-17] MEDS ORDERED: ATORVASTATIN 40 MG TAB PO SCH (09:00)
[2017-09-17] MEDS: ENOXAPARIN SOD INJ 40 MG/0.4 ML SYR SC SCH (17:30)
[2017-09-17] MEDS: CEFTRIAXONE SOD 1 GM VIAL IV SCH (17:50)
[2017-09-17] MEDS: LIDOCAINE VISC 2% SOLN 15 ML UDC PO PRN (18:00)
[2017-09-17] MEDS: TRAZODONE HCL 50 MG TAB PO SCH (20:53)
[2017-09-17] MEDS: ACETAMINOPHEN/CODEINE 300MG - 30MG TAB PO PRN (20:54)
[2017-09-18] VITALS (8 sets, daily range): BP systolic 112–150; BP diastolic 53–82
[2017-09-18] MEDS: ACETAMINOPHEN/CODEINE 300MG - 30MG TAB PO PRN ×4 (01:44→23:17)
[2017-09-18 07:53] LABS: ANION GAP 11.1 mmol/L (8-16); BLOOD UREA NITROGEN 8 mg/dL (7-26); BUN/CREATININE RATIO 11 (6-25); CALCIUM 9.1 mg/dL (8.4-10.2); CARBON DIOXIDE 37 mmol/L (22-29); CHLORIDE 97 mmol/L (98-107); CREATININE, SERUM 0.75 mg/dL (0.57-1.11); EST GLOMERULAR FILTRATION RATE > 60 ML/MIN (60-); GLUCOSE 92 mg/dL (74-118); POTASSIUM 4.1 mmol/L (3.5-5.1); SODIUM 141 mmol/L (136-145)
[2017-09-18] MEDS: DOCUSATE SODIUM 100 MG CAP PO SCH ×2 (08:44→17:00)
[2017-09-18] MEDS: SPIRONOLACTONE 25 MG TAB PO SCH ×2 (08:44→17:04)
[2017-09-18] MEDS: POTASSIUM CHLORIDE 10 MEQ TABCR PO SCH ×2 (08:44→17:04)
[2017-09-18] MEDS: FUROSEMIDE INJ 10 MG/ML 4 ML VIAL IV SCH ×2 (08:44→17:04)
[2017-09-18] MEDS: FOLIC ACID 1 MG TAB PO SCH (08:44)
[2017-09-18] MEDS: FERROUS SULFATE 325 MG TAB PO SCH ×2 (08:44→20:49)
[2017-09-18] MEDS: PAROXETINE HCL 20 MG TAB PO SCH (08:45)
[2017-09-18] MEDS: SENNOSIDES 8.6 MG TAB PO SCH ×2 (08:45→17:00)
[2017-09-18] MEDS: METOPROLOL TARTRATE 25 MG TAB PO SCH ×2 (08:45→20:50)
[2017-09-18] MEDS: PANTOPRAZOLE SOD 40 MG TABEC PO SCH (08:45)
[2017-09-18] MEDS: LISINOPRIL 2.5 MG TAB PO SCH (08:45)
[2017-09-18] MEDS: BALSAM PERU/CASTOR OIL 60 GM OINT...G. TP SCH ×2 (08:45→17:04)
[2017-09-18] MEDS: LIDOCAINE VISC 2% SOLN 15 ML UDC PO PRN (15:55)
[2017-09-18] MEDS: CEFTRIAXONE SOD 1 GM VIAL IV SCH (17:04)
[2017-09-18] MEDS: CHLORASEPTIC SPRAY 177 ML BTL MM PRN (17:10)
[2017-09-18] MEDS: ENOXAPARIN SOD INJ 40 MG/0.4 ML SYR SC SCH (17:10)
[2017-09-18] MEDS: ALBUTEROL/IPRATROPIUM 3 ML NEB NEB PRN (19:46)
[2017-09-18] MEDS: TRAZODONE HCL 50 MG TAB PO SCH (20:49)
[2017-09-18] MEDS: ATORVASTATIN 40 MG TAB PO SCH (20:50)
[2017-09-19] VITALS (10 sets, daily range): BP systolic 89–166; BP diastolic 46–99
[2017-09-19] MEDS: ACETAMINOPHEN/CODEINE 300MG - 30MG TAB PO PRN ×3 (05:41→16:49)
[2017-09-19 06:00] LABS: ANION GAP 12.5 mmol/L (8-16); BLOOD UREA NITROGEN 8 mg/dL (7-26); BUN/CREATININE RATIO 11 (6-25); CALCIUM 9.2 mg/dL (8.4-10.2); CARBON DIOXIDE 35 mmol/L (22-29); CHLORIDE 99 mmol/L (98-107); CREATININE, SERUM 0.72 mg/dL (0.57-1.11); EST GLOMERULAR FILTRATION RATE > 60 ML/MIN (60-); GLUCOSE 79 mg/dL (74-118); POTASSIUM 4.5 mmol/L (3.5-5.1); SODIUM 142 mmol/L (136-145)
[2017-09-19] MEDS ORDERED: K DUR10 MEQ PO (07:36)
[2017-09-19] MEDS ORDERED: SENOKOT8.6 MG PO (07:36)
[2017-09-19] MEDS ORDERED: LISINOPRIL2.5 MG PO (07:36)
[2017-09-19] MEDS ORDERED: COLACE100 M1 PO (07:36)
[2017-09-19] MEDS ORDERED: ALDACTONE25 MG PO (07:36)
[2017-09-19] MEDS: DOCUSATE SODIUM 100 MG CAP PO SCH ×2 (08:00→16:40)
[2017-09-19] MEDS: SENNOSIDES 8.6 MG TAB PO SCH ×2 (08:01→16:40)
[2017-09-19] MEDS: SPIRONOLACTONE 25 MG TAB PO SCH ×2 (08:34→16:40)
[2017-09-19] MEDS: FOLIC ACID 1 MG TAB PO SCH (08:34)
[2017-09-19] MEDS: FERROUS SULFATE 325 MG TAB PO SCH ×2 (08:34→20:21)
[2017-09-19] MEDS: FUROSEMIDE INJ 10 MG/ML 4 ML VIAL IV SCH ×2 (08:34→16:49)
[2017-09-19] MEDS: POTASSIUM CHLORIDE 10 MEQ TABCR PO SCH ×2 (08:35→16:40)
[2017-09-19] MEDS: METOPROLOL TARTRATE 25 MG TAB PO SCH ×2 (08:35→20:06)
[2017-09-19] MEDS: BALSAM PERU/CASTOR OIL 60 GM OINT...G. TP SCH ×2 (08:35→16:49)
[2017-09-19] MEDS: LISINOPRIL 2.5 MG TAB PO SCH (08:35)
[2017-09-19] MEDS: LIDOCAINE VISC 2% SOLN 15 ML UDC PO PRN (08:35)
[2017-09-19] MEDS: PANTOPRAZOLE SOD 40 MG TABEC PO SCH (08:35)
[2017-09-19] MEDS: PAROXETINE HCL 20 MG TAB PO SCH (08:35)
[2017-09-19] MEDS: ENOXAPARIN SOD INJ 40 MG/0.4 ML SYR SC SCH (16:40)
[2017-09-19] MEDS: CEFTRIAXONE SOD 1 GM VIAL IV SCH (16:49)
[2017-09-19] MEDS: ATORVASTATIN 40 MG TAB PO SCH (20:21)
[2017-09-19] MEDS: TRAZODONE HCL 50 MG TAB PO SCH (21:00)
[2017-09-20] MEDS: TRAZODONE HCL 50 MG TAB PO SCH (00:39)
[2017-09-20 05:21] VITALS: BP 107/70
[2017-09-20 05:46] LABS: BLOOD UREA NITROGEN 9 mg/dL (7-26); BUN/CREATININE RATIO 12 (6-25); CALCIUM 8.8 mg/dL (8.4-10.2); CARBON DIOXIDE 38 mmol/L (22-29); CHLORIDE 98 mmol/L (98-107); CREATININE, SERUM 0.73 mg/dL (0.57-1.11); EST GLOMERULAR FILTRATION RATE > 60 ML/MIN (60-); GLUCOSE 101 mg/dL (74-118); SODIUM 142 mmol/L (136-145)
[2017-09-20] MEDS: FERROUS SULFATE 325 MG TAB PO SCH (08:00)
[2017-09-20 08:12] VITALS: BP 130/63
[2017-09-20] MEDS: LISINOPRIL 2.5 MG TAB PO SCH (09:00)
[2017-09-20] MEDS: PANTOPRAZOLE SOD 40 MG TABEC PO SCH (09:00)
[2017-09-20] MEDS: PAROXETINE HCL 20 MG TAB PO SCH (09:00)
[2017-09-20] MEDS: DOCUSATE SODIUM 100 MG CAP PO SCH ×2 (09:00→16:17)
[2017-09-20] MEDS: SPIRONOLACTONE 25 MG TAB PO SCH ×2 (09:00→16:17)
[2017-09-20] MEDS: FUROSEMIDE INJ 10 MG/ML 4 ML VIAL IV SCH ×2 (09:00→16:17)
[2017-09-20] MEDS: BALSAM PERU/CASTOR OIL 60 GM OINT...G. TP SCH ×2 (09:00→16:18)
[2017-09-20] MEDS: FOLIC ACID 1 MG TAB PO SCH (09:00)
[2017-09-20] MEDS: SENNOSIDES 8.6 MG TAB PO SCH ×2 (09:00→16:18)
[2017-09-20] MEDS: POTASSIUM CHLORIDE 10 MEQ TABCR PO SCH ×2 (09:00→16:18)
[2017-09-20 11:13] VITALS: BP 130/63
[2017-09-20 12:19] VITALS: BP 126/57
[2017-09-20] MEDS: ACETAMINOPHEN/CODEINE 300MG - 30MG TAB PO PRN (16:15)
[2017-09-20] MEDS: CEFTRIAXONE SOD 1 GM VIAL IV SCH (16:17)
[2017-09-20] MEDS: ENOXAPARIN SOD INJ 40 MG/0.4 ML SYR SC SCH (16:18)
--- NOTE | 2017-09-20 17:00 | Progress Note ---
DATE: September 17, 2017 MEDICINE PROGRESS NOTE TIME OF SERVICE: 7 a.m. SUBJECTIVE: Overnight, no events. REVIEW OF SYSTEMS: Denies any chest pain. VITAL SIGNS: Reviewed. PHYSICAL EXAMINATION GENERAL APPEARANCE: A tired-appearing woman resting in bed. HEENT: Anicteric. CARDIOVASCULAR: Normal S1/S2. LUNGS: Moderate breath sounds. ABDOMEN: Soft. Less indurated. EXTREMITIES: 1+ edema. SKIN: Dry. PSYCHIATRIC: Flat affect. LABS: Reviewed. MEDICATIONS: Reviewed. ASSESSMENT: A 71-year-old woman. 1. Acute exacerbation of systolic congestive heart failure. 2. Peripheral edema. 3. Bilateral pleural effusions. 4. Hypokalemia. 5. Hyperbilirubinemia. 6. Hyperlipidemia. 7. Iron deficiency anemia. 8. Gastroesophageal reflux disease. 9. Rheumatoid arthritis. 10. Alcohol use. 11. Anasarca. 12. Left ventricular ejection fraction of 45% to 50%. 13. Small to moderate pericardial effusion. 14. Moderate aortic regurgitation. 15. Moderate to severe tricuspid regurgitation. 16. Moderate pulmonary hypertension. 17. Urinary tract infection. PLAN 1. Continue antibiotics. 2. Continue diuresis. 3. Continue physical therapy. 4. Discharge planning. Job#: [id number] EV
--- NOTE | 2017-09-20 17:07 | Progress Note ---
DATE: September 18, 2017 MEDICINE PROGRESS NOTE TIME OF SERVICE: 7:15 a.m. SUBJECTIVE: Overnight, no events. REVIEW OF SYSTEMS: Denies any chest pain, shortness of breath, fever, chills, sweats. VITAL SIGNS: Reviewed. PHYSICAL EXAMINATION GENERAL APPEARANCE: A tired-appearing woman resting in bed. HEENT: Anicteric. CARDIOVASCULAR: Normal S1/S2. No murmurs. ABDOMEN: Soft. Less indurated. Some edema. EXTREMITIES: 1+ edema. SKIN: Dry. PSYCHIATRIC: Flat affect. LABS: Reviewed. MEDICATIONS: Reviewed. ASSESSMENT: A 71-year-old woman. 1. Acute exacerbation of systolic congestive heart failure, left ventricular ejection fraction of 45% to 50%. 2. Peripheral edema. 3. Bilateral pleural effusions. 4. Fluid overload. 5. Rheumatoid arthritis. 6. Gastroesophageal reflux disease. 7. Alcohol abuse. 8. Urinary tract infection. PLAN 1. Continue diuresis. 2. Continue antibiotics. 3. Continue physical therapy. 4. Discharge planning. Job#: [id number] EV
--- NOTE | 2017-09-20 17:38 | Progress Note ---
DATE: September 19, 2017 MEDICINE PROGRESS NOTE TIME OF SERVICE: 7 a.m. SUBJECTIVE: Overnight, no events. REVIEW OF SYSTEMS: Denies any dizziness. Denies shortness of breath, fever, chills, sweats, nausea, vomiting, diarrhea, leg pain, back pain. VITAL SIGNS: Reviewed. PHYSICAL EXAMINATION GENERAL APPEARANCE: A tired-appearing woman resting in bed. HEENT: Anicteric. CARDIOVASCULAR: Normal S1/S2. LUNGS: Moderate breath sounds. ABDOMEN: Soft, nondistended. EXTREMITIES: 1+ leg edema. SKIN: Dry. PSYCHIATRIC: Normal affect. LABS: Reviewed. MEDICATIONS: Reviewed. ASSESSMENT: A 71-year-old woman. 1. Acute exacerbation of systolic congestive heart failure, left ventricular ejection fraction of 45%. 2. Peripheral edema. 3. Bilateral pleural effusions. 4. Fluid overload. 5. Iron deficiency anemia. 6. Gastroesophageal reflux disease. 7. Rheumatoid arthritis. 8. Small pericardial effusion. 9. Urinary tract infection. PLAN 1. Received antibiotics. 2. IV diuretics. 3. output. 4. Discharge planning. Job#: [id number] EV
--- NOTE | 2017-09-20 20:01 | Discharge Summary ---
PRINCIPAL DIAGNOSES 1. Acute exacerbation of systolic heart failure, left ejection fraction 45%-50%. 2. Eozye-oh-gbqoznzs pericardial effusion. 3. Pleural edema. 4. Bilateral pleural effusion. 5. Anasarca. 6. Gastroesophageal reflux disease. 7. Hypokalemia. 8. Hyperbilirubinemia. 9. Hyperlipidemia. 10. Iron-deficiency anemia. 11. Alcohol abuse. 12. Moderate aortic regurgitation. 13. Kzkyxkwj-ck-tujvcm tricuspid regurgitation. 14. Moderate pulmonary hypertension. 15. Urinary tract infection Escherichia coli. CHIEF COMPLAINT: Shortness of breath. HISTORY: A 71-year-old woman with shortness of breath. Please refer to H and P for further details. HOSPITAL COURSE: Patient was found to have shortness of breath and fluid overload. She has acute exacerbation of systolic CHF, as mentioned ejection fraction 45%-50%. the IV Lasix , but she had alcohol abuse and counseled about cessation. Had zmefu-bh-ikwzmivs pericardial effusion and moderate aortic regurgitation and cwqiyfqy-ri-dhkwse tricuspid regurgitation, moderate pulmonary hypertension. Blood pressure controlled during hospitalization. Urinary tract infection, given antibiotics. Patient doing better. Currently, appropriate for discharge. DISCHARGE MEDICATION: Per electronic medical records. FOLLOWUP: Primary care doctor in 1 week. She needs to continue Lasix, continue diuresis, and continue physical therapy. DISCHARGE CONDITION: Stable. DISCHARGE LOCATION: Skilled facility. KEIRY NEWBERRY MD Job#: [id number] CQ
[2017-09-20] MEDS ORDERED: METOPROLOL TARTRATE 25 MG TAB PO SCH (21:00)
== END 2017-09-20 17:12 | DRG 292 ==
LOC: ER 15:14 → ERHOLD 19:10 → MED/SURG 21:05
PROVIDERS: ADMIT Internal Medicine; ATTEND Internal Medicine
CPT/HCPCS: 36415; 71045; 80048; 80053; 80061; 81001; 82140; 82550; 82553; 83880; 84443; 84484; 85025; 85610; 85730; 87086; 87186; 93005; 93306; 93925; 93970; 94640; 97139; 99284; J0696; J1650; J1940